=== PATIENT | female | born 1975 | race Caucasian/White ===

== ENCOUNTER → 2023-07-29 19:06 | Outpatient (REF) | payer OTHER, SELFPAY | LOC: WDC 19:06 | PROVIDERS: ATTENDING PHYSICIAN Nurse Practitioner Women's Health | DX: Z12.31 Encounter for screening mammogram for malignant neoplasm of breast (principal) | CPT/HCPCS: 77063; 77067 ==

== ENCOUNTER → 2024-08-30 08:31 | Outpatient (REF) | payer OTHER, SELFPAY | LOC: WDC 08:31 | PROVIDERS: ATTENDING PHYSICIAN Obstetrics & Gynecology; FAMILY PHYSICIAN Family Medicine | DX: Z12.31 Encounter for screening mammogram for malignant neoplasm of breast (principal) | CPT/HCPCS: 77063; 77067 ==